=== PATIENT | female | born 1975 ===

== ENCOUNTER 2024-07-08 11:54 | Inpatient (IN) ==
[2024-07-08 13:58] LABS: Hematocrit 26.9 % (35-45); Hemoglobin 7.9 g/dL (11.5-14.3); Mean Corpuscular Hemoglobin 18.7 pg (27-33); Mean Corpuscular Hgb Conc 29.3 g/dL (31-36); Mean Platelet Volume 8.4 fL (7.5-11.2); Platelet Count 461 10^3/uL (150-450); Red Blood Count 4.21 10^6/uL (3.63-4.92); Red Cell Distribution Width 19.7 % (12-17); White Blood Count 8.6 10^3/uL (3.8-11.8)
[2024-07-08] MEDS ORDERED: Heparin DRIP 25,000 UNITS BAG 25,000 UNITS/250 ML BAG IV SCH (14:30)
[2024-07-08] MEDS ORDERED: Heparin 5000 UNITS/ML 1 mL VIAL IV SCH (15:00)
[2024-07-08] MEDS: Enoxaparin 100 MG/ML SYR SUBCUT SCH (16:06)
[2024-07-08] MEDS ORDERED: Sulfur Hexaflouride MICROSPHR 25 MG VIAL IV PRN (16:44)
[2024-07-08 16:56] LABS: % Iron Saturation 6 % (15-55); .Transferrin 249 mg/dL (203-362); Albumin 2.9 g/dL (3.2-5.2); Calcium 8.5 mg/dL (8.6-10.3); Creatinine, Serum 0.73 mg/dL (0.51-0.95); Globulin 2.9 g/dL (2-4); Iron < 20 ug/dL (50-212); Magnesium 2.1 mg/dL (1.9-2.7); Potassium 4.1 mmol/L (3.5-5.0); Total Bilirubin 0.4 mg/dL (0.2-1.0); Total Iron Binding Capacity 349 mcg/dL (250-450); Total Protein 5.8 g/dL (6.4-8.9); Unsaturated Iron Binding 329 ug/dL; eGFR CKD-EPI 100.1 (>60)
[2024-07-08 17:10] LABS: TSH Ultra Thyroid Stim Horm 2.55 mcIU/mL (0.34-5.60)
[2024-07-08 17:23] LABS: Ferritin 10.7 ng/mL (11-307)
[2024-07-08] MEDS: Ferric Gluconate IV 250 MG in NS 0.9% 250 ml 200 ML IVPB SCH (19:29)
[2024-07-09 06:11] LABS: Albumin 2.9 g/dL (3.2-5.2); Calcium 8.3 mg/dL (8.6-10.3); Creatinine, Serum 0.69 mg/dL (0.51-0.95); Magnesium 2.2 mg/dL (1.9-2.7); Potassium 4.7 mmol/L (3.5-5.0); Total Bilirubin 0.4 mg/dL (0.2-1.0); Total Protein 5.9 g/dL (6.4-8.9); eGFR CKD-EPI 105.7 (>60)
[2024-07-09 06:20] LABS: ABS Basophils 0.1 10^3/uL (0.0-0.1); ABS Eosinophils 0.2 10^3/uL (0.0-0.5); ABS Lymphocytes 0.8 10^3/uL (1.0-4.8); ABS Monocytes 0.5 10^3/uL (0.0-0.9); ABS Neutrophils 5.2 10^3/uL (1.5-7.6); ABS Nucleated RBC 0.01 10^3/ul; Anisocytosis 2+; Eosinophil % 3.3 %; Hematocrit 26.8 % (35-45); Hemoglobin 7.9 g/dL (11.5-14.3); Hypochromasia 2+; Lymphocyte % 11.4 %; Mean Corpuscular Hemoglobin 18.6 pg (27-33); Mean Corpuscular Hgb Conc 29.4 g/dL (31-36); Mean Corpuscular Volume 63.1 fL (80-97); Mean Platelet Volume 8.5 fL (7.5-11.2); Microcytosis 3+; Nucleated Red Blood Cells % 0.2 %/100WBC (0.0-0.8); Platelet Count 404 10^3/uL (150-450); Polychromasia 1+; Red Blood Count 4.24 10^6/uL (3.63-4.92); Red Cell Distribution Width 19.8 % (12-17); White Blood Count 6.9 10^3/uL (3.8-11.8)
[2024-07-09] MEDS: Influenza Vaccine *TRI* 2024-25* 0.5 ML SYRINGE IM ONE (13:32)
[2024-07-10 04:45] LABS: ABS Eosinophils 0.4 10^3/uL (0.0-0.5); ABS Lymphocytes 1.2 10^3/uL (1.0-4.8); ABS Monocytes 0.6 10^3/uL (0.0-0.9); ABS Neutrophils 5.6 10^3/uL (1.5-7.6); ABS Nucleated RBC 0.02 10^3/ul; Eosinophil % 4.5 %; Hematocrit 28.6 % (35-45); Hemoglobin 8.2 g/dL (11.5-14.3); Lymphocyte % 15.7 %; Mean Corpuscular Hemoglobin 18.2 pg (27-33); Mean Corpuscular Hgb Conc 28.7 g/dL (31-36); Mean Corpuscular Volume 63.4 fL (80-97); Mean Platelet Volume 8.2 fL (7.5-11.2); Nucleated Red Blood Cells % 0.3 %/100WBC (0.0-0.8); Platelet Count 436 10^3/uL (150-450); Red Blood Count 4.51 10^6/uL (3.63-4.92); Red Cell Distribution Width 19.4 % (12-17); White Blood Count 7.8 10^3/uL (3.8-11.8)
[2024-07-10 05:35] LABS: Albumin/Globulin Ratio 0.9 (1-3); Calcium 8.7 mg/dL (8.6-10.3); Creatinine, Serum 0.73 mg/dL (0.51-0.95); Globulin 3.4 g/dL (2-4); HDL Cholesterol 30.6 mg/dL; Potassium 4.4 mmol/L (3.5-5.0); Total Bilirubin 0.3 mg/dL (0.2-1.0); Total Protein 6.4 g/dL (6.4-8.9); eGFR CKD-EPI 100.1 (>60)
[2024-07-10 07:01] LABS: INR 1.21 (0.85-1.14)
[2024-07-11 06:41] LABS: Calcium 8.5 mg/dL (8.6-10.3); Creatinine, Serum 0.8 mg/dL (0.51-0.95); Magnesium 2.2 mg/dL (1.9-2.7); Phosphorus 3.7 mg/dL (2.5-5.0); Potassium 4.6 mmol/L (3.5-5.0); eGFR CKD-EPI 89.7 (>60)
[2024-07-11 11:29] LABS: ABS Basophils 0.1 10^3/uL (0.0-0.1); ABS Eosinophils 0.3 10^3/uL (0.0-0.5); ABS Lymphocytes 0.9 10^3/uL (1.0-4.8); ABS Monocytes 0.5 10^3/uL (0.0-0.9); ABS Neutrophils 5.7 10^3/uL (1.5-7.6); ABS Nucleated RBC 0.03 10^3/ul; Eosinophil % 3.9 %; Hematocrit 29.4 % (35-45); Hemoglobin 8.5 g/dL (11.5-14.3); Lymphocyte % 11.9 %; Mean Corpuscular Hgb Conc 28.8 g/dL (31-36); Mean Platelet Volume 8.5 fL (7.5-11.2); Nucleated Red Blood Cells % 0.4 %/100WBC (0.0-0.8); Platelet Count 412 10^3/uL (150-450); Red Blood Count 4.46 10^6/uL (3.63-4.92); Red Cell Distribution Width 19.6 % (12-17); White Blood Count 7.5 10^3/uL (3.8-11.8)
[2024-07-12 07:26] LABS: Calcium 8.6 mg/dL (8.6-10.3); Creatinine, Serum 0.7 mg/dL (0.51-0.95); Magnesium 2.1 mg/dL (1.9-2.7); Phosphorus 4.2 mg/dL (2.5-5.0); Potassium 4.5 mmol/L (3.5-5.0); eGFR CKD-EPI 105.3 (>60)
[2024-07-12 08:25] LABS: ABS Basophils 0.1 10^3/uL (0.0-0.1); ABS Eosinophils 0.3 10^3/uL (0.0-0.5); ABS Monocytes 0.6 10^3/uL (0.0-0.9); ABS Neutrophils 6.1 10^3/uL (1.5-7.6); ABS Nucleated RBC 0.01 10^3/ul; Anisocytosis 2+; Eosinophil % 3.5 %; Hematocrit 28.3 % (35-45); Hemoglobin 8.4 g/dL (11.5-14.3); Lymphocyte % 12.3 %; Mean Corpuscular Hemoglobin 19.5 pg (27-33); Mean Corpuscular Hgb Conc 29.6 g/dL (31-36); Mean Corpuscular Volume 65.7 fL (80-97); Mean Platelet Volume 8.6 fL (7.5-11.2); Microcytosis 3+; Nucleated Red Blood Cells % 0.2 %/100WBC (0.0-0.8); Platelet Count 352 10^3/uL (150-450); Polychromasia 2+; Red Cell Distribution Width 19.4 % (12-17); White Blood Count 8.1 10^3/uL (3.8-11.8)
[2024-07-12] MEDS: cefTRIAXone 1 gm/50 mL D5W 1 GM/50 ML BAG IV SCH (12:43)
[2024-07-12] MEDS: Azithromycin 500 mg/250 ml NS 500 MG/250 ML BAG IVPB SCH (13:49)
[2024-07-13 06:22] LABS: Calcium 8.9 mg/dL (8.6-10.3); Creatinine, Serum 0.76 mg/dL (0.51-0.95); Magnesium 2.2 mg/dL (1.9-2.7); Phosphorus 4.5 mg/dL (2.5-5.0); Potassium 4.3 mmol/L (3.5-5.0); eGFR CKD-EPI 95.4 (>60)
[2024-07-13 09:29] LABS: Hematocrit 29.2 % (35-45); Hemoglobin 8.5 g/dL (11.5-14.3); Mean Corpuscular Hemoglobin 19.6 pg (27-33); Mean Corpuscular Volume 67.4 fL (80-97); Platelet Count 330 10^3/uL (150-450); Red Blood Count 4.34 10^6/uL (3.63-4.92); Red Cell Distribution Width 20.5 % (12-17); White Blood Count 6.6 10^3/uL (3.8-11.8)
[2024-07-14 06:51] LABS: ABS Basophils 0.1 10^3/uL (0.0-0.1); ABS Eosinophils 0.3 10^3/uL (0.0-0.5); ABS Lymphocytes 0.9 10^3/uL (1.0-4.8); ABS Monocytes 0.5 10^3/uL (0.0-0.9); ABS Neutrophils 3.6 10^3/uL (1.5-7.6); Eosinophil % 6.4 %; Hematocrit 30.2 % (35-45); Hemoglobin 8.9 g/dL (11.5-14.3); Lymphocyte % 17.4 %; Mean Corpuscular Hemoglobin 19.7 pg (27-33); Mean Corpuscular Hgb Conc 29.4 g/dL (31-36); Mean Corpuscular Volume 67.1 fL (80-97); Mean Platelet Volume 8.5 fL (7.5-11.2); Platelet Count 288 10^3/uL (150-450); Red Cell Distribution Width 19.7 % (12-17); White Blood Count 5.4 10^3/uL (3.8-11.8)
[2024-07-14] MEDS: PEG 3000 GI LAVAGE 1 GALLON PO ONE (14:47)
[2024-07-15 07:41] LABS: ABS Basophils 0.1 10^3/uL (0.0-0.1); ABS Eosinophils 0.3 10^3/uL (0.0-0.5); ABS Lymphocytes 0.9 10^3/uL (1.0-4.8); ABS Monocytes 0.5 10^3/uL (0.0-0.9); ABS Neutrophils 3.3 10^3/uL (1.5-7.6); Eosinophil % 6.7 %; Hemoglobin 9.5 g/dL (11.5-14.3); Lymphocyte % 17.4 %; Mean Corpuscular Hgb Conc 29.6 g/dL (31-36); Mean Corpuscular Volume 67.6 fL (80-97); Mean Platelet Volume 8.7 fL (7.5-11.2); Nucleated Red Blood Cells % 0.1 %/100WBC (0.0-0.8); Platelet Count 299 10^3/uL (150-450); Red Blood Count 4.73 10^6/uL (3.63-4.92); Red Cell Distribution Width 20.6 % (12-17)
[2024-07-15 07:54] LABS: Creatinine, Serum 0.78 mg/dL (0.51-0.95); Magnesium 2.1 mg/dL (1.9-2.7); Potassium 4.1 mmol/L (3.5-5.0); eGFR CKD-EPI 92.5 (>60)
[2024-07-15] MEDS ORDERED: Lidocaine 2% PF 5 ML VIAL ONE (14:19)
[2024-07-15] MEDS ORDERED: Propofol 10 MG/ML 20 ML BTL ONE ×3 (14:20→16:15)
[2024-07-15] MEDS ORDERED: Naloxone 0.4 mg VIAL 0.4 mg/ml 1 ml VIAL IV PRN (14:54)
[2024-07-16 07:46] LABS: ABS Basophils 0.1 10^3/uL (0.0-0.1); ABS Eosinophils 0.3 10^3/uL (0.0-0.5); ABS Lymphocytes 0.8 10^3/uL (1.0-4.8); ABS Monocytes 0.4 10^3/uL (0.0-0.9); ABS Neutrophils 3.2 10^3/uL (1.5-7.6); Eosinophil % 6.3 %; Hematocrit 29.7 % (35-45); Hemoglobin 8.8 g/dL (11.5-14.3); Lymphocyte % 16.7 %; Mean Corpuscular Hemoglobin 20.2 pg (27-33); Mean Corpuscular Hgb Conc 29.6 g/dL (31-36); Mean Corpuscular Volume 68.3 fL (80-97); Mean Platelet Volume 8.9 fL (7.5-11.2); Nucleated Red Blood Cells % 0.1 %/100WBC (0.0-0.8); Platelet Count 248 10^3/uL (150-450); Red Blood Count 4.35 10^6/uL (3.63-4.92); Red Cell Distribution Width 19.8 % (12-17); White Blood Count 4.8 10^3/uL (3.8-11.8)
[2024-07-16 08:00] LABS: Calcium 8.3 mg/dL (8.6-10.3); Creatinine, Serum 0.69 mg/dL (0.51-0.95); Potassium 4.4 mmol/L (3.5-5.0); eGFR CKD-EPI 105.7 (>60)
[2024-07-17 06:54] LABS: Hematocrit 30.1 % (35-45); Mean Corpuscular Hemoglobin 20.4 pg (27-33); Mean Corpuscular Hgb Conc 29.9 g/dL (31-36); Mean Corpuscular Volume 68.3 fL (80-97); Platelet Count 232 10^3/uL (150-450); Red Cell Distribution Width 24.5 % (12-17); White Blood Count 4.1 10^3/uL (3.8-11.8)
[2024-07-17 07:13] LABS: ABS Basophils 0.1 10^3/uL (0.0-0.1); ABS Eosinophils 0.3 10^3/uL (0.0-0.5); ABS Lymphocytes 0.9 10^3/uL (1.0-4.8); ABS Monocytes 0.4 10^3/uL (0.0-0.9); ABS Neutrophils 2.4 10^3/uL (1.5-7.6); Anisocytosis 2+; Eosinophil % 8.4 %; Hypochromasia 1+; Lymphocyte % 21.3 %; Microcytosis 3+; Polychromasia 1+
[2024-07-17 09:46] VITALS: BP 129/89
== END 2024-07-17 12:18 | disposition home or self-care (01) | DRG 134 ==
LOC: SUATTDRO 13:01 → ICU 13:01 → MED 07-11 16:25
PROVIDERS: ADMIT Internal Medicine Critical Care Medicine; ATTEND Internal Medicine